=== PATIENT | female | born 1950 | race Caucasian/White ===

== ENCOUNTER → 2016-11-30 | Outpatient (CLI) | payer MEDICARE, BC | END | disposition home or self-care (01) | LOC: RAD 10:23 | PROVIDERS: ATTEND Neurological Surgery | DX: M48.06 Spinal stenosis, lumbar region (principal); M40.294 Other kyphosis, thoracic region; M40.46 Postural lordosis, lumbar region; Z98.1 Arthrodesis status | CPT/HCPCS: 72082 ==